=== PATIENT | male | born 1980 | race American Indian/Alaskan Native ===

== ENCOUNTER 2020-02-22 14:41 | Emergency (ER) | payer OTHER ==
[~2020-02-22] VITALS: Ht 185.4 cm; Wt 106.6 kg
--- OUTSIDE RECORDS SUMMARY | ~2020-02-22 | XMS | Encounter Summary ---
Demographics + + + | Address | [address] | | | [place] [address] | + + + | Home Phone | | + + + | Preferred Language | Unknown | + + + | Marital Status | | + + + | Methodist Affiliation | Unknown | + + + | Race | Unknown | + + + | Ethnic Group | Unknown | + + + Author + + + | Author | [facility] | | | and [place] | + + + | Organization | [facility] | | | and [place] | + + + | Address | Unknown | + + + | Phone | Unavailable | + + + Care Team Providers + +------+ + | Care Parcel Post Officer Name | Role | Phone | + +------+ + PCP | Unavailable | + +------+ + Encounter Details +--------+ + + + + | Date | Type | Department | Care Team | Description | +--------+ + + + + | 05/30/ | Abstract | [facility] | | | 2011 | | Conversion Location | SR | | | | | [address] | | | | | | [place], [place] | | | | | | [address] | | | | | | [phone] | | | +--------+ + + + + Social History + +-------+ +--------+------+ | Tobacco Use | Types | Packs/Day | Years | Date | | | | | Used | | + +-------+ +--------+------+ | Never Assessed | | | | | + +-------+ +--------+------+ + + + | Sex Assigned at | Date Recorded | | | | + + + | Not on file | | + + + + + + + | Job Start Date | Occupation | Industry | + + + + | Not on file | Not on file | Not on file | + + + + + + + + | Travel History | Travel Start | Travel End | + + + + + + | No recent travel history available. | + + documented as of this encounter Last Filed Vital Signs + + + + + | Vital Sign | Reading | Time Taken | Comments | + + + + + | Blood Pressure | 120/82 | 02/15/2012 12:00 AM | | | | | PDT | | + + + + + | Pulse | - | - | | + + + + + | Temperature | - | - | | + + + + + | Respiratory Rate | - | - | | + + + + + | Oxygen Saturation | - | - | | + + + + + | Inhaled Oxygen | - | - | | | Concentration | | | | + + + + + | Weight | 110.7 kg (244 lb) | 02/15/2012 12:00 AM | | | | | PDT | | + + + + + | Height | 184.2 cm (6' 0.5") | 02/13/2012 12:00 AM | | | | | PDT | | + + + + + | Body Mass Index | 32.64 | 02/13/2012 12:00 AM | | | | | PDT | | + + + + + documented in this encounter Plan of Treatment Not on filedocumented as of this encounter Visit Diagnoses Not on filedocumented in this encounter
--- OUTSIDE RECORDS SUMMARY | ~2020-02-22 | XMS | Clinical Summary ---
Demographics + + + | Address | [address] | | | [place] [address] | + + + | Home Phone | | + + + | Preferred Language | Unknown | + + + | Marital Status | | + + + | Spiritism Affiliation | Unknown | + + + | Race | Unknown | + + + | Ethnic Group | Unknown | + + + Author + + + | Author | [facility] | | | and [place] | + + + | Organization | [facility] | | | and [place] | + + + | Address | Unknown | + + + | Phone | Unavailable | + + + Care Team Providers + +------+ + | Care Senior Asic Design Engineer Name | Role | Phone | + +------+ + PCP | Unavailable | + +------+ + Allergies No Known Allergies Medications + + + +---------+------+------+-------+ | Medication | Sig | Dispensed | Refills | Star | End | Statu | | | | | | t | Date | s | | | | | | Date | | | + + + +---------+------+------+-------+ | clarithromycin | Take 1 tablet by | | 0 | 09/1 | | Activ | | (BIAXIN) 500 MG | mouth twice daily | | | 4/20 | | e | | tablet | until all taken for | | | 12 | | | | | infection | | | | | | + + + +---------+------+------+-------+ | ALPRAZolam (XANAX) | Take 1 tablet by | | 0 | 09/1 | | Activ | | 0.25 mg tablet | mouth once daily as | | | 4/20 | | e | | | needed for anxiety. | | | 12 | | | | | Avoid alcohol, may | | | | | | | | cause drowsiness. | | | | | | + + + +---------+------+------+-------+ | amitriptyline | Take 1 tablet by | | 0 | 09/1 | | Activ | | (ELAVIL) 25 mg | mouth once daily at | | | 4/20 | | e | | tablet | bedtime for sleep. | | | 12 | | | | | May increase by one | | | | | | | | half every 3-5 days | | | | | | | | until sleeping well. | | | | | | + + + +---------+------+------+-------+ | amoxicillin | Take 2 capsules by | | 0 | 09/1 | | Activ | | (AMOXIL) 500 MG | mouth two times | | | 4/20 | | e | | capsule | daily | | | 12 | | | + + + +---------+------+------+-------+ | naproxen | Take 1 tablet by | | 0 | 09/1 | | Activ | | (NAPROSYN) 500 mg | mouth twice daily | | | 4/20 | | e | | tablet | with meals for pain | | | 12 | | | | | or inflammation | | | | | | + + + +---------+------+------+-------+ | omeprazole | Take 20 mg by mouth | | 0 | 05/18 | | Activ | | (PRILOSEC) 20 mg | Daily. | | | 420 | | e | | capsule | | | | 12 | | | + + + +---------+------+------+-------+ | promethazine | Take 1 tablet by | | 0 | 05/18 | | Activ | | (PHENERGAN) 25 mg | mouth every 7 hours | | | 420 | | e | | tablet | as needed for nausea | | | 12 | | | | | or vomiting. | | | | | | + + + +---------+------+------+-------+ Active Problems + + + | Problem | Noted Date | + + + | HEARTBURN | 02/15/2012 | + + + | NAUSEA WITH VOMITING | 02/15/2012 | + + + | H-PYLORI | 02/15/2012 | + + + + + | Overview: ICD-10 Record update | + + + +---+ | ALCOHOLIC FATTY LIVER | | + +---+ | ESOPHAGEAL REFLUX | | + +---+ Social History + +-------+ +--------+------+ | Tobacco [...] recent travel history available. | + + Last Filed Vital Signs + + + [...] | | + + + + + Plan of Treatment + + + + + | Health Maintenance | Due Date | Last Done | Comments | + + + + + | Vaccine: | | | | | Dtap/Tdap/Td (1 - | 9 | | | | Tdap) | | | | + + + + + | Vaccine: Influenza | | | | | (Season Ended) | 0 | | | + + + + + Results Not on filefrom Last 3 Months
--- OUTSIDE RECORDS SUMMARY | ~2020-02-22 | XMS | Clinical Summary ---
Demographics + + + | Address | [address] | | | [place] [address] | + + + | Home Phone | | + + + | Preferred Language | Unknown | + + + | Marital Status | | + + + | Denominational Affiliation | Unknown | + + + | Race | Unknown | + + + | Ethnic Group | Unknown | + + + Author + + + | Author | [facility] | | | and [place] | + + + | Organization | [facility] | | | and [place] | + + + | Address | Unknown | + + + | Phone | Unavailable | + + + Care Team Providers + +------+ + | Care Field Reimbursement Manager Name | Role | Phone | + [...]
--- OUTSIDE RECORDS SUMMARY | ~2020-02-22 | XMS | Encounter Summary ---
Demographics + + + | Address | [address] | | | [place] [address] | + + + | Home Phone | | + + + | Preferred Language | Unknown | + + + | Marital Status | | + + + | Nondenominational Affiliation | Unknown | + + + | Race | Unknown | + + + | Ethnic Group | Unknown | + + + Author + + + | Author | [facility] | | | and [place] | + + + | Organization | [facility] | | | and [place] | + + + | Address | Unknown | + + + | Phone | Unavailable | + + + Care Team Providers + +------+ + | Care Brazer Furnace Name | Role | Phone | + [...] [phone] | | | | | | [place], [place] | | | | | | [address] | | | | | | [phone] | | | +--------+ + + + [...]
--- OUTSIDE RECORDS SUMMARY | ~2020-02-22 | XMS | Encounter Summary ---
Demographics + + + | Address | [address] | | | [place] [address] | + + + | Home Phone | | + + + | Preferred Language | Unknown | + + + | Marital Status | | + + + | Episcopal Affiliation | Unknown | + + + | Race | Unknown | + + + | Ethnic Group | Unknown | + + + Author + + + | Author | [facility] | | | and [place] | + + + | Organization | [facility] | | | and [place] | + + + | Address | Unknown | + + + | Phone | Unavailable | + + + Care Team Providers + +------+ + | Care Prop Maker Name | Role | Phone | + +------+ + PCP | Unavailable | + +------+ + Encounter Details +--------+ + + + + | Date | Type | Department | Care Team | Description | +--------+ + + + + | 02/21/ | Hospital | [facility] | | | | 2011 | Encounter | [facility] | | | | | | [address] | | | | | | [place] | | | | | | [address] | | | | | | [phone] | | | +--------+ + + + [...] + + documented as of this encounter Plan of Treatment Not on filedocumented as of this encounter Visit Diagnoses Not on filedocumented in this encounter"
--- OUTSIDE RECORDS SUMMARY | ~2020-02-22 | XMS | Encounter Summary ---
Demographics + + + | Address | [address] | | | [place] [address] | + + + | Home Phone | | + + + | Preferred Language | Unknown | + + + | Marital Status | | + + + | Christianity Affiliation | Unknown | + + + | Race | Unknown | + + + | Ethnic Group | Unknown | + + + Author + + + | Author | [facility] | | | and [place] | + + + | Organization | [facility] | | | and [place] | + + + | Address | Unknown | + + + | Phone | Unavailable | + + + Care Team Providers + +------+ + | Care Hammer Adjuster Name | Role | Phone | + +------+ + PCP | Unavailable | + +------+ + Encounter Details +--------+ + + + + | Date | Type | Department | Care Team | Description | +--------+ + + + + | 02/21/ | Hospital | [facility] | | | | 2011 | Encounter | [facility] | | | | | | [address] | | | | | | [place] | | | | | | [phone] | | | | | | [phone] | | | +--------+ + + + [...]
[~2020-02-22 14:41] MED LIST: IBUPROFEN800 MG PO; PROMETHAZINE HC25 M1 PO
[2020-02-22] MEDS ORDERED: OMEPRAZOLE40 MG PO (14:50)
--- NOTE | 2020-02-22 19:24 | EKG ---
[facility] [address] [place], [place] [address] Signed Normal sinus rhythm Normal ECG Confirmed by DARYA CRUZ MD ([id number]) on 02/22/2020 7:24:25 PM Electronically Signed By: DARYA CRUZ MD 02/22/20 1924 PATIENT NAME: DINESH SANDERS Electrocardiogram DATE OF : 76 PHYSICIAN: DARYA CRUZ MD REPORT #: [id number] REPORT IS CONFIDENTIAL AND NOT TO BE RELEASED WITHOUT AUTHORIZATION
== END 2020-02-22 17:20 | disposition home or self-care (01) ==
LOC: ED 14:41
DX: R07.9 Chest pain, unspecified (principal); K21.9 Gastro-esophageal reflux disease without esophagitis; Z87.891 Personal history of nicotine dependence; Z79.899 Other long term (current) drug therapy
CPT/HCPCS: 71046; 80053; 83735; 84484; 85025; 93005; 93010; 99285-25

== ENCOUNTER 2024-05-01 12:50 | Emergency (ER) | payer BC, OTHER ==
[~2024-05-01] VITALS: Ht 185.4 cm; Wt 104.8 kg
[~2024-05-01 12:50] MED LIST changes: +OMEPRAZOLE40 MG PO
[2024-05-01] MEDS ORDERED: ondansetron HCL 4 MG/2 ML VIAL IV ONE (13:00)
[2024-05-01] MEDS ORDERED: SODIUM CHLORIDE 0.9% 1,000 ML IV ONE (13:00)
[2024-05-01 13:05] LABS: BASOPHILS 1.1 % (0-2); EOSINOPHILS 1.8 % (0-6); HEMATOCRIT 42.4 % (35.0-50.0); HEMOGLOBIN 13.9 g/dL (12.0-18.0); LYMPHOCYTES 17.2 % (24-44); MCHC 32.8 g/dl (30-36); MCV 82.5 fl (81-99); MONOCYTES 5.2 % (0-12); NEUTROPHILS 74.7 % (39-80); PLATELET COUNT 410 K/uL (140-440); RBC 5.14 M/ul (4.3-5.7); RDW 15.1 (10.5-15.0)
[2024-05-01] MEDS ORDERED: LORazepam 2 MG/ML VIAL IV ONE (13:15)
[2024-05-01 13:23] LABS: ALBUMIN 4.2 g/dL (3.4-5.0); ALBUMIN/GLOBULIN RATIO 1.17 (1.1-2.4); ALKALINE PHOSPHATASE 57 U/L (46-116); ALT (SGPT) 19 U/L (14-59); ANION GAP 15.3 (7-21); AST (SGOT) 16 U/L (15-37); BILIRUBIN, TOTAL 0.5 ng/dL (0.2-1.0); BUN/CREATININE RATIO 11.34 (6.0-28.6); CALCIUM 9.1 mg/dL (8.5-10.1); CARBON DIOXIDE 26 mmol/L (21-32); CHLORIDE 104 mmol/L (98-107); CREATININE, SERUM 0.97 mg/dL (0.70-1.30); GLOMERULAR FILTRATION RATE,EST 98 mL/min (>60); MAGNESIUM 1.9 mg/dL (1.8-2.4); POTASSIUM 4.3 mmol/L (3.5-5.1); PROTEIN, TOTAL 7.8 g/dL (6.4-8.2); UREA NITROGEN 11 mg/dL (7-18)
[2024-05-01] MEDS ORDERED: ATIVAN1 MG PO (14:31)
[2024-05-01 14:40] VITALS: BP 126/87
--- NOTE | 2024-05-01 15:41 | EKG ---
[facility] [address] [place], [place] [address] Signed Sinus bradycardia Otherwise normal ECG When compared with ECG of 25-FEB-2024 15:46, QT has shortened Confirmed by Zeenat Jeffery ([id number]) on 05/01/2024 3:41:38 PM Electronically Signed By: ZEENAT JEFFERY MD 05/01/24 1541 PATIENT NAME: DINESH SANDERS Electrocardiogram DATE OF : 76 PHYSICIAN: ZEENAT JEFFERY MD REPORT #: [id number] REPORT IS CONFIDENTIAL AND NOT TO BE RELEASED WITHOUT AUTHORIZATION
== END 2024-05-01 14:40 | disposition home or self-care (01) ==
LOC: ED 12:50
PROVIDERS: Emergency Medicine
DX: R10.9 Unspecified abdominal pain (principal); K21.9 Gastro-esophageal reflux disease without esophagitis; I10 Essential (primary) hypertension; Z87.891 Personal history of nicotine dependence
CPT/HCPCS: 36415; 80053; 83735; 84484; 85025; 93005; 93010; 96374; 96375; 99284-25; J2060; J2405; J7030